=== PATIENT | female | born 2000 | race African-American/Black ===

== ENCOUNTER 2024-12-08 10:39 | Emergency (ER) | payer OTHER, SELFPAY ==
[2024-12-08 10:46] VITALS: BP 142/90; PULSE 80; TEMP 37.2; O2SAT 100; BMI 34.9
[2024-12-08 10:53] VITALS: O2SAT 99
[2024-12-08] MEDS: ACETAMINOPHEN 325 MG TABLET 650 MG PO (11:24)
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
== END 2024-12-08 12:59 | disposition home or self-care (01) ==
PROVIDERS: Emergency Provider Emergency Medicine
DX: S13.9XXA Sprain of joints and ligaments of unspecified parts of neck, initial encounter (principal); V49.49XA Driver injured in collision with other motor vehicles in traffic accident, initial encounter
CPT/HCPCS: 70450; 71046; 72125; 99284

== ENCOUNTER 2025-01-24 10:57 | Emergency (ER) | payer SELFPAY ==
[2025-01-24 11:01] VITALS: BP 160/94; PULSE 78; TEMP 37.1; O2SAT 98
--- OUTSIDE RECORDS SUMMARY | 2025-01-24 11:08 | XMS_ITS | Patient Health Record ---
Author Organization [facility] Address [address] [place], [place] [id number] Care Team Providers Care Healthcare Liaison Name Role Phone Cherry Allison Unavailable [phone] MartiRafi Unavailable [phone] Allergies No Known Allergies Reason For Referral No Information Social History Tobacco Use: Social History Observation Description Date Details (start date - stop date) Never Smoker NA - NA Sex Assigned At : Social History Observation Description Sex Assigned At Female Tobacco Control (Standard) Question Answer Notes Tobacco use: Nonsmoker Problems Problem Type SNOMED Code ICD Code Onset Dates Problem Status W/U Status Risk Notes Problem Tobacco user (462195831) Cigarette nicotine dependence without complication (F17.210) Active confirmed Problem Obese class II (6299491194324 05) BMI 36.0-36.9,adul t (Z68.36) Active confirmed Problem 046273965 Marijuana use (F12.90) Active confirmed Problem Acanthosis nigricans (402591855) Acanthosis nigricans (L83) Active confirmed Problem Exercises teaching, guidance, and counseling (772024050) Exercise counseling (Z71.82) Active confirmed Problem migraine (disorder) (44218338) Migraines (G43.909) Active confirmed Comment:Mixed type, not controlled with NSAIDS c/w TCA at bedtime, migraines are controlled at this time Will C/W motrin PRN as they helped in the past Keep Neruo appt's mom and patient verbalized understanding,S tory:Visual acuity lasty visit was 20/40 and 20/50. Advised mom to keep follow up with optometry for eye glasses, Problem Hypertension (32580959) Hypertension (I10) Active confirmed Comment:with evidence of insulin resistant labs reviewed, no elevated glucose or kidney function Renal artery US WNL, no stenosis Discussed need for lower fat diet, given 5-2-1-0 handout COntrolled at this time without medication Will try nuritionalist referal d/t hx of PCOS and obesity patient and mom verbalized understanding, Problem Obesity (131394317) Obesity (E66.9) Active confirmed Comment:walk 30 minutes 3-5 times a week low fat diet Good weight loss F/U in 6 months mom verbalized understanding, Problem Sleep apnea (98603675) Apnea, sleep (G47.30) Active confirmed Comment:Needs referal, reported by mom, Problem Abdominal pain (25370071) Abdominal pain (R10.9) Active confirmed Comment:?GB stones evaluate as noted rec weight loss avoid spicy/ greasy foods discussed- go to ER if sudden severe pain/ vomiting/ fever/ any concerns, Problem History of Chiari malformation (Z86.69) Active confirmed Comment:Unknown type per mom, never treated surgically Will refer to Neurosurgery d/t hx of and current symptoms, Problem Dietary management surveillance (392985838) Encounter for dietary counseling and surveillance (Z71.3) Active confirmed Description: summer counseling Vital Signs Heart Rate 84 /min 10/02/2024 Height-cm 165.1 cm 10/02/2024 Blood pressure diastolic 93 mm Hg 10/02/2024 Weight-kg 99.79 kg 10/02/2024 Height 65 in 10/02/2024 Blood pressure systolic 139 mm Hg 10/02/2024 Weight 220 lbs 10/02/2024 BMI 36.61 kg/m2 10/02/2024 Encounters Encounter Location Date Provider Diagnosis [facility] [address] [place] [id number] 02/06/2024 Cherry Estefany BMI 36.0-36.9,adul t Z68.36 ; Encounter for screening for dental disorders Z13.84 ; Dietary counseling Z71.3 ; Exercise counseling Z71.82 ; Encounter for dental examination and cleaning with abnormal findings Z01.21 ; Dental sealant status Z98.810 ; Necrosis of pulp K04.1 and Dental caries into dentine K02.62 [facility] [address] [place] [id number] 03/11/2024 Cherry Allison Encounter for dent al examination and cleaning with abnormal findings Z01.21 [facility] [address] [place], [place] [id number] 05/11/2024 [facility] Dental caries into dentine K02.62 and Encounter for dental examination and cleaning with abnormal findings Z01.21 [facility] [address] [place], [place] [id number] 10/02/2024 Rafi Kidd BMI 36.0-36.9,adul t Z68.36 ; Marijuana use F12.90 ; Dietary counseling Z71.3 ; Exercise counseling Z71.82 ; Cigarette nicotine dependence without complication F17.210 and Encounter for dental examination and cleaning without abnormal findings Z01.20 [address], [place] [id number] 10/13/2024 Rafi Kidd Assessments Encounter Date Diagnosis (ICD Code) Assessment Notes Treatment Notes Treatment Clinical Notes Section Notes 10/02/2024 BMI 36.0-36.9,adult (ICD-10 - Z68.36) 02/06/2024 BMI 36.0-36.9,adult (ICD-10 - Z68.36) 05/11/2024 Dental caries into dentine (ICD-10 - K02.62) 03/11/2024 Encounter for dental examination and cleaning with abnormal findings (ICD-10 - Z01.21) 02/06/2024 Encounter for screening for dental disorders (ICD-10 - Z13.84) 10/02/2024 Marijuana use (ICD-10 - F12.90) 05/11/2024 Encounter for dental examination and cleaning with abnormal findings (ICD-10 - Z01.21) 10/02/2024 Dietary counseling (ICD-10 - Z71.3) 02/06/2024 Dietary counseling (ICD-10 - Z71.3) 02/06/2024 Exercise counseling (ICD-10 - Z71.82) 10/02/2024 Exercise counseling (ICD-10 - Z71.82) 10/02/2024 Cigarette nicotine dependence without complication (ICD-10 - F17.210) 02/06/2024 Encounter for dental examination and cleaning with abnormal findings (ICD-10 - Z01.21) 10/02/2024 Encounter for dental examination and cleaning without abnormal findings (ICD-10 - Z01.20) 02/06/2024 Dental sealant status (ICD-10 - Z98.810) 02/06/2024 Necrosis of pulp (ICD-10 - K04.1) 02/06/2024 Dental caries into dentine (ICD-10 - K02.62) Plan Of Treatment Next Appt Details Provider Name:Rafi Kidd , 04/16/2025 11:00:00 AM, [address] [place] [address], [phone], Medical (General) History Medical History History ICD Code History of Chiari malformation, ProblemS tatus: Active, , Hypertension, ProblemStatus: Active, , Obesity, COMMENTS: Also advi sed to discuss betweeb mom and daughter about HANNHA evaluation. +snoring and reported apnea per mom, daytime sleepiness per patient. Suggestive of HANNAH. Ronda voiced understanding, ProblemStatus: Active, , Panic Attacks , ProblemStatus: Active, , Polycystic Ovarian Disease, ProblemStatu s: Active, , Surgical History Surgery Date(Month/Year) Tonsillectomy and adenoidectomy, Problem Status: Active,
--- OUTSIDE RECORDS SUMMARY | 2025-01-24 11:08 | XMS_ITS | Clinical Summary ---
Author Organization [facility] Address [address] [place], [place] [id number] Care Team Providers Care Manager State Name Role Phone ArinatiagoSaulo Primary Care Provider Jennifer Clements DO Unavailable [phone] Allergies No known active allergies Medications norgestimate 0.25 mg-ethinyl estradiol 35 mcg (SPRINTEC) 0.25-35 mg-mcg per tabletIndicatio ns:Obesity Take 2 tablets by mouth as directed. Take 2 tabs daily until bleeding stops, then one pill a day. Active Hydrochlorothia zide 12.5 mg capsuleIndicati ons:Obesity Take 12.5 mg by mouth once daily. Active Social History Tobacco Use Types Packs/Day Years Used Date Smoking Tobacco: Never Alcohol Use Standard Drinks/Week Comments Not Asked 0 (1 standard drink = 0.6 oz pur e alcohol) Comments No Sex and Gender Information Value Date Recorded Sex Assigned at Not on file Legal Sex Female 8:11 AM EST Gender Identity Not on file Sexual Orientation Not on file Last Filed Vital Signs Vital Sign Reading Time Taken Comments Blood Pressure 141/88 01/12/2015 9:26 AM EDT Pulse 97 01/12/2015 9:26 AM EDT Temperature - - Respiratory Rate - - Oxygen Saturation - - Inhaled Oxygen Concentration - - Weight 106.7 kg (235 lb 3.2 oz) 01/12/2015 9:26 AM EDT Height 162.3 cm (5' 3.9 ) 01/12/2015 9:26 AM EDT Body Mass Index 40.5 01/12/2015 9:26 AM EDT Plan of Treatment Health Maintenance Due Date Last Done Comments Peds To Adult Transition Initial Discussion 2011 Peds To Adult Transition Annual Assessment 2013 HPV Vaccine (1 - 3-dose series) 2014 Anxiety Screening 2017 Depression Screening 2017 HIV Screening 2017 Hepatitis C Screening 2017 DTaP,Tdap,Td Vaccine (1 - Tdap) 2018 Hepatitis B Vaccine (1 of 3 - 19+ 3-dose series) 03/02 Cervical Cancer Screening 2020 Covid-19 Vaccine ( - 2023- season) 2024 Influenza Vaccine (Season Ended) 2025 Care Teams Manager State Relationship Specialty Start Date End Date Saulo Cisneros [address] [facility] [place] [address] PCP - General 07/21/07 Jennifer Clements DO [address] [facility] [place] [address] Referring Family Medicine 02/26/17
--- OUTSIDE RECORDS SUMMARY | 2025-01-24 11:09 | XMS_ITS | Clinical Summary ---
Author Organization [employer] [facility] Address [id number] [address] [place] [address] Care Team Providers Care Seal Mixing Operator Name Role Phone Kelsea Hollis [employer]LE[employer] Primary Care Provider + Allergies No known active allergies Medications spironolactone (ALDACTONE) 100 mg tablet Take 100 mg by mouth daily. Active ibuprofen (ADVIL,MOTRIN) 800 mg tablet Take 800 mg by mouth every 6 (six) hours as needed for pain. Active Social History Tobacco Use Types Packs/Day Years Used Date Smoking Tobacco: Every Day Cigars Smokeless Tobacco: Never Alcohol Use Standard Drinks/Week Comments Yes 0 (1 standard drink = 0.6 oz pur e alcohol) 2-3 month AUDIT-C Answer Date Recorded Frequency of Alcohol Consumption Never 09/27/2018 Average Number of Drinks Not on file 019 Frequency of Binge Drinking Not on file 09/12 Childcare Answer Date Recorded Childcare Unknown 01/19/2019 Employment Answer Date Recorded Employment Unknown 01/19/2019 Purpose - Life Answer Date Recorded Purpose and direction in life Unknown Comments No Sex and Gender Information Value Date Recorded Sex Assigned at Not on file Legal Sex Female 1:54 PM EDT Gender Identity Not on file Sexual Orientation Not on file Last Filed Vital Signs Vital Sign Reading Time Taken Comments Blood Pressure 140/101 11/29/2023 10:38 AM EDT Pulse 80 11/29/2023 10:38 AM EDT Temperature 36.7 C (98.1 F) 05/21/2021 5:23 PM EDT Respiratory Rate 16 11/29/2023 10:38 AM EDT Oxygen Saturation 100% 11/29/2023 10:38 AM EDT Inhaled Oxygen Concentration - - Weight 99.8 kg (220 lb) 11/29/2023 10:38 AM EDT Height 165.1 cm (5' 5 ) 11/29/2023 10:38 AM EDT Body Mass Index 36.61 11/29/2023 10:38 AM EDT Plan of Treatment Health Maintenance Due Date Last Done Comments Depression Screening 2011 COVID-19 Vaccine (2023-2 5 season) 2024 10/06/2020, 08/29/2020 Adult BMI Screening 11/28/2024 11/29/2023 Tobacco Screening 11/28/2024 11/29/2023 Influenza Vaccine 04/12/2025 06/26/2022, , 08/02/2020, Additional history exists Pap Smear 07/02/2026 07/02/2023 DTaP,Tdap and Td Vaccines (8 - Td or Tdap) 03/27/2029 03/27/2019, 05/15/2011, 11/01/2003, Additional history exists Medical Devices Not on file Care Teams Seal Mixing Operator Relationship Specialty Start Date End Date Kelsea Hollis, [employer] [address] [facility] [address] [place] [address] PCP - General Family Medicine 05/21/21
--- OUTSIDE RECORDS SUMMARY | 2025-01-24 11:09 | XMS_ITS | Patient Health Record ---
Author Organization [facility] Address [address] [place] [address] Support Name Relationship Address Phone FÁTIMA NANCE Emergency Contact [place], [place] [phone] PHOEBE BRADLEY Guarantor Unknown Allergies No Known Allergies Reason For Referral No Information Medications Medication SIG (Take, Route, Fr equency, Duration) Notes Start Date End Date Status Spironolactone 100 MG 1.5 tablets Orally Once a day Active Ibuprofen 800 MG 1 tablet with food o r milk as needed Orally Three times a day Active Immunizations Vaccine Route Administration Date Status Comme nts Influenza 3+ PRIVATE IM Intramuscular 06/26/2022 Administe red Social History Tobacco Use: Social History Observation Description Date Details (start date - stop date) Never Smoker NA - NA Tobacco Screen: Question Answer Notes Are you a: never smoker Sexual Hx: Question Answer Notes Had sex in the last 12 months (vaginal, oral, or anal)? Yes Alcohol Screening: Question Answer Notes Did you have a drink containing alcohol in the p ast year? No Points 0 Interpretation Negative Depression Screening (PHQ-9): Question Answer Notes Little interest or pleasure in doing things Not at all Feeling down, depressed, or hopeless Not at all Trouble falling or staying asleep, or sleeping t oo much Not at all Feeling tired or having little energy Not at all Poor appetite or overeating Not at all Feeling bad about yourself-o r that you are a failure or have let yourself or your family down Not at all Trouble concentrating on thi ngs, such as reading the newspaper or watching television Not at all Moving or speaking so slowly that other people could have noticed. Or the opposite being so fidgety or restless that you have been moving around a lot more than usual Not at all Thoughts that you would be b anabell off , or of hurting yourself in some way Not at all Total Score 0 Section Notes: Pt. has panic attacks, refus es meds. Pt. has panic attacks, refus es meds. Pt. has panic attacks, refus es meds. Pt. has panic attacks, refus es meds. Pt. has panic attacks, refus es meds. Problems Problem Type SNOMED Code ICD Code Onset Dates Problem Status W/U Status Risk Notes Problem [id number] Patellofemoral p ain syndrome of right knee (M22.2X1) Active confirmed Plan Of Treatment No Information Insurance Providers Payer Name Payer Address Payer Phone Subscriber Number Group Number Insured Name Patient Relationship to Insured Coverage Start Date Coverage End Date [facility] [address] [address] [place] [address] [id number] PHOEBE BRADLEY Self - patient is the insured 9 3 zMEDICAID [employer] after [facility] [address] [place] [address] [id number] PHOEBE BRADLEY Self - patient is the insured 9 3 zDENTAL [facility]-ter med [address] [address] [place] [address] [id number] [facility] PHOEBE BRADLEY Self - patient is the insured 0 3 zDental MEDICAID [employer] after [facility] [address] [place] [address] [id number] PHOEBE BRADLEY Self - patient is the insured 0 3 Medical (General) History Medical History History ICD Code Chiari Malformation Polycystic Ovarian Syndrome Surgical History Surgery Date(Month/Year) Tonsillectomy/Adnoidectomy 2004
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
[2025-01-24] MEDS: ORPHENADRINE 60 MG/2 ML VIAL IM (11:57)
[2025-01-24] MEDS: KETOROLAC TROMETHAMINE 60 MG/2 ML VIAL IM (11:58)
== END 2025-01-24 15:03 | disposition home or self-care (01) ==
PROVIDERS: Emergency Provider Emergency Medicine
DX: S23.3XXA Sprain of ligaments of thoracic spine, initial encounter (principal); V49.9XXA Car occupant (driver) (passenger) injured in unspecified traffic accident, initial encounter; S29.9XXA Unspecified injury of thorax, initial encounter
CPT/HCPCS: 72070; 72100; 84703; 96372; 99284; J1885; J2360